=== PATIENT | female | born 1960 | race African-American/Black ===

== ENCOUNTER 2020-10-17 20:16 | Emergency (ER) | payer OTHER ==
[2020-10-17 20:35] VITALS: TEMP 98.1; BMI 25.8
[2020-10-17] MEDS ORDERED: ACETAMINOPHEN 1000 MG/100 ML VIAL (NON FORMULARY) IVPB ONE (20:36)
[2020-10-17] MEDS ORDERED: ASPIRIN 81 MG CHEWABLE TABLETS PO ONE (20:36)
[2020-10-17] MEDS ORDERED: LIDOCAINE 5% TOPICAL PATCH TP ONE (20:45)
[2020-10-17] MEDS ORDERED: ASPIRIN 81 MG CHEWABLE TABLETS ONE (20:54)
[2020-10-17] MEDS ORDERED: LIDOCAINE 5% TOPICAL PATCH ONE (20:55)
[2020-10-17] MEDS ORDERED: ACETAMINOPHEN INJECTION 100 ML IVPB ONE (20:55)
[2020-10-17] MEDS ORDERED: diazePAM 5 MG TABLET ONE (20:55)
[2020-10-17 21:07] LABS: BASO % 0.4 % (0-2.0); EOS % 0.7 % (0-4.5); HEMATOCRIT 36.5 % (32.4-45.2); MCH 27.4 pg (25.7-33.7); MCHC 32.9 g/dl (32.0-36.0); MEAN CELL VOLUME 83.3 fl (80-96); MEAN PLT VOLUME 8.6 fl (7.5-11.1); MONO % 6.8 % (3.8-10.2); NEUT % 52.1 % (42.8-82.8); PLATELET COUNT 132 K/MM3 (134-434); RBC 4.39 M/mm3 (3.60-5.2); RDW 16.5 % (11.6-15.6); WHITE BLOOD COUNT 5.5 K/mm3 (4.0-10.0)
[2020-10-17 21:27] LABS: CHLORIDE 110 mmol/L (98-107); SODIUM 138 mmol/L (136-145)
[2020-10-17 21:29] LABS: BLOOD UREA NITROGEN 14.5 mg/dL (7-18); CALCIUM 8.3 mg/dL (8.5-10.1); CO2 29 mmol/L (21-32); GLUCOSE,RANDOM 84 mg/dL (74-106)
[2020-10-17 21:30] LABS: ALBUMIN 3.3 g/dl (3.4-5.0); INR 1.02 (0.83-1.09); PROTHROMBIN TIME (PATIENT) 12.3 SEC (9.7-13.0)
[2020-10-17 21:32] LABS: ACTIVATED PTT 29.3 SECONDS (25.2-36.5); SGPT/ALT 27 U/L (13-61)
[2020-10-17 21:33] LABS: CREATININE 0.9 mg/dL (0.55-1.3); SGOT/AST 64 U/L (15-37)
[2020-10-17 21:34] LABS: BILIRUBIN,TOTAL 0.3 mg/dL (0.2-1); TOT PROT 6.8 g/dl (6.4-8.2)
[2020-10-17 21:35] LABS: ALK PHOS 86 U/L (45-117)
[2020-10-17 21:46] LABS: ANION GAP -1 MMOL/L (8-16)
[2020-10-17] MEDS ORDERED: KETOROLAC TROMETHAMINE 30 MG/1 ML VIAL IVPUSH ONE (21:49)
[2020-10-17] MEDS ORDERED: KETOROLAC TROMETHAMINE 30 MG/1 ML VIAL ONE (21:53)
[2020-10-17] MEDS ORDERED: ALBUTEROL SO4 2.5/IPRATROPIUM 0.5 INH SOL 3 ML VIAL.NEB. NEB ONE (21:57)
[2020-10-17] MEDS ORDERED: LIDOCAINE PATCH REMOVAL MC SCH (22:00)
[2020-10-17] MEDS ORDERED: diazePAM 5 MG TABLET PO ONE (22:00)
[2020-10-17 22:50] VITALS: BP 128/78; PULSE 64
== END 2020-10-17 22:49 | disposition home or self-care (01) ==
LOC: JER 20:16
PROC: 3E0333Z Introduction of Anti-inflammatory into Peripheral Vein, Percutaneous Approach (ICD-10-PCS; principal; 2020-10-17)
PROC: 3E0F7GC Introduction of Other Therapeutic Substance into Respiratory Tract, Via Natural or Artificial Opening (ICD-10-PCS; 2020-10-17)
PROC: 3E0333Z Introduction of Anti-inflammatory into Peripheral Vein, Percutaneous Approach (ICD-10-PCS; 2020-10-17)
DX: R07.89 Other chest pain (principal)
CPT/HCPCS: 36415; 71045-TC-FY; 80053; 82550; 82553; 83735; 84484; 85025; 85379; 85610; 85730; 93005; 93010; 99285-25; J0131

== ENCOUNTER 2021-08-15 09:19 | Inpatient (IN) | payer SELFPAY ==
[2021-08-15] MEDS ORDERED: morphine CARPU-JECT 4 MG/1 ML DISP.SYRIN IVPUSH ONE ×2 (09:43→13:10)
[2021-08-15] MEDS ORDERED: ACETAMINOPHEN 1000 MG/100 ML BAG IVPB ONE (09:43)
[2021-08-15] MEDS ORDERED: SODIUM CHLORIDE 0.9% 500 ML INFUS.BAG IV ONE (09:43)
[2021-08-15] MEDS ORDERED: morphine SULFATE 4 MG/ML VIAL ONE ×2 (09:53→13:21)
[2021-08-15] MEDS ORDERED: ACETAMINOPHEN INJECTION 100 ML IVPB ONE (09:53)
[2021-08-15 10:20] LABS: BASO % 0.2 % (0-2.0); EOS % 0.2 % (0-4.5); HEMATOCRIT 39.1 % (32.4-45.2); HEMOGLOBIN 12.9 GM/dL (10.7-15.3); LYMPH % 26.6 % (8-40); MCH 26.6 pg (25.7-33.7); MEAN CELL VOLUME 80.5 fl (80-96); MEAN PLT VOLUME 7.9 fl (7.5-11.1); MONO % 10.2 % (3.8-10.2); NEUT % 62.8 % (42.8-82.8); PLATELET COUNT 141 10^3/uL (134-434); RBC 4.85 M/mm3 (3.60-5.2); RDW 16.3 % (11.6-15.6); WHITE BLOOD COUNT 5.7 K/mm3 (4.0-10.0)
[2021-08-15 10:28] LABS: INR 1.08 (0.83-1.09); PROTHROMBIN TIME (PATIENT) 12.4 SEC (9.7-13.0)
[2021-08-15 10:31] LABS: ACTIVATED PTT 31.1 SECONDS (25.2-36.5)
[2021-08-15 10:40] LABS: BLOOD UREA NITROGEN 9.6 mg/dL (7-18)
[2021-08-15 10:41] LABS: ALBUMIN 3.8 g/dl (3.4-5.0); MAGNESIUM 2.3 mg/dL (1.8-2.4)
[2021-08-15 10:44] LABS: CREATININE 0.8 mg/dL (0.55-1.3)
[2021-08-15 10:45] LABS: TOT PROT 7.6 g/dl (6.4-8.2)
[2021-08-15 11:56] LABS: URINE APPEARANCE CLEAR; URINE BILIRUBIN NEGATIVE (NEGATIVE); URINE COLOR YELLOW; URINE GLUCOSE (UA) NEGATIVE (NEGATIVE); URINE KETONE NEGATIVE (NEGATIVE); URINE LEUK ESTERASE NEGATIVE (NEGATIVE); URINE NITRITE NEGATIVE (NEGATIVE); URINE PROTEIN NEGATIVE (NEGATIVE)
[2021-08-15] MEDS ORDERED: metroNIDAZOLE 250 MG TABLET PO ONE (14:07)
[2021-08-15] MEDS ORDERED: metroNIDAZOLE 250 MG TABLET ONE (14:22)
[2021-08-15] MEDS ORDERED: ACETAMINOPHEN 325 MG TABLET (FP) PO PRN (14:30)
[2021-08-15] MEDS ORDERED: oxyCODONE HCL 5 MG TABLET PO PRN (14:30)
[2021-08-15] MEDS ORDERED: BUDESONIDE/FORMETEROL FUMARATE 160/4.5 mcg INHALER IH ONE (15:03)
[2021-08-15] MEDS ORDERED: ALBUTEROL SO4 HFA INHALER IH PRN (15:04)
[2021-08-15] MEDS ORDERED: oxyCODONE HCL 5 MG TABLET ONE ×2 (16:34→20:43)
[2021-08-15] MEDS ORDERED: LIDOCAINE 5% TOPICAL PATCH TP ONE (16:45)
[2021-08-15] MEDS ORDERED: LIDOCAINE 5% TOPICAL PATCH ONE (17:12)
[2021-08-15] MEDS ORDERED: INSULIN SLIDING SCALE (NOVOLOG) 1 VIAL SQ ONE (17:48)
[2021-08-15] MEDS: INSULIN SLIDING SCALE (NOVOLOG) 1 VIAL SQ SCH (17:49)
[2021-08-15] MEDS: oxyCODONE HCL 5 MG TABLET PO PRN (20:53)
[2021-08-15] MEDS: ACETAMINOPHEN 325 MG TABLET (FP) PO PRN (20:53)
[2021-08-15 21:21] VITALS: BMI 25.2
[2021-08-15] MEDS: HEPARIN NA (PORCINE) 5,000 UNITS/ML 1ML VIAL SQ SCH (21:34)
[2021-08-15] MEDS: LIDOCAINE PATCH REMOVAL MC SCH (21:34)
[2021-08-16] MEDS: ACETAMINOPHEN 325 MG TABLET (FP) PO PRN ×4 (00:48→12:28)
[2021-08-16] MEDS: oxyCODONE HCL 5 MG TABLET PO PRN ×4 (00:48→12:28)
[2021-08-16] MEDS: INSULIN SLIDING SCALE (NOVOLOG) 1 VIAL SQ SCH ×3 (06:04→16:57)
[2021-08-16 08:35] LABS: BASO % 0.3 % (0-2.0); EOS % 0.6 % (0-4.5); HEMATOCRIT 35.5 % (32.4-45.2); HEMOGLOBIN 11.6 GM/dL (10.7-15.3); LYMPH % 45.5 % (8-40); MCH 26.6 pg (25.7-33.7); MCHC 32.7 g/dl (32.0-36.0); MEAN CELL VOLUME 81.3 fl (80-96); MEAN PLT VOLUME 8.4 fl (7.5-11.1); MONO % 10.2 % (3.8-10.2); NEUT % 43.4 % (42.8-82.8); PLATELET COUNT 115 10^3/uL (134-434); RBC 4.36 M/mm3 (3.60-5.2); RDW 16.5 % (11.6-15.6); WHITE BLOOD COUNT 4.2 K/mm3 (4.0-10.0)
[2021-08-16 08:55] LABS: CALCIUM 8.2 mg/dL (8.5-10.1)
[2021-08-16 08:56] LABS: BLOOD UREA NITROGEN 8.2 mg/dL (7-18)
[2021-08-16 08:59] LABS: CREATININE 0.8 mg/dL (0.55-1.3)
[2021-08-16 09:00] LABS: BILIRUBIN,TOTAL 0.7 mg/dL (0.2-1); TOT PROT 6.2 g/dl (6.4-8.2)
[2021-08-16] MEDS: HEPARIN NA (PORCINE) 5,000 UNITS/ML 1ML VIAL SQ SCH ×2 (09:42→21:07)
[2021-08-16] MEDS: TIOTROPIUM BROMIDE 2.5 MCG (SPIRIVA) RESPIMAT INHALER IH SCH (10:48)
[2021-08-16] MEDS: ACETAMINOPHEN 1000 MG/100 ML BAG IVPB SCH ×3 (16:56→21:07)
[2021-08-16] MEDS: POLYETHYLENE GLYCOL (HEALTHYLAX) 3350 17 GM PACKET PO SCH ×2 (16:56→21:07)
[2021-08-16] MEDS: LIDOCAINE PATCH REMOVAL MC SCH (21:07)
[2021-08-17] MEDS: ACETAMINOPHEN 1000 MG/100 ML BAG IVPB SCH ×2 (00:45→01:24)
[2021-08-17] MEDS ORDERED: MELATONIN 5 MG TABLETS PO ONE (02:42)
[2021-08-17] MEDS: POLYETHYLENE GLYCOL (HEALTHYLAX) 3350 17 GM PACKET PO SCH ×3 (05:09→21:07)
[2021-08-17] MEDS: INSULIN SLIDING SCALE (NOVOLOG) 1 VIAL SQ SCH ×3 (06:10→16:53)
[2021-08-17] MEDS ORDERED: ACETAMINOPHEN 1000 MG/100 ML BAG IVPB ONE (08:01)
[2021-08-17 09:22] LABS: BASO % 0.4 % (0-2.0); EOS % 0.2 % (0-4.5); HEMATOCRIT 36.2 % (32.4-45.2); LYMPH % 37.5 % (8-40); MCH 26.9 pg (25.7-33.7); MCHC 33.2 g/dl (32.0-36.0); MEAN CELL VOLUME 81.1 fl (80-96); MEAN PLT VOLUME 8.4 fl (7.5-11.1); MONO % 9.6 % (3.8-10.2); NEUT % 52.3 % (42.8-82.8); PLATELET COUNT 132 10^3/uL (134-434); RBC 4.46 M/mm3 (3.60-5.2); RDW 16.1 % (11.6-15.6); WHITE BLOOD COUNT 4.7 K/mm3 (4.0-10.0)
[2021-08-17 10:06] LABS: CALCIUM 8.6 mg/dL (8.5-10.1)
[2021-08-17 10:07] LABS: BLOOD UREA NITROGEN 7.6 mg/dL (7-18); MAGNESIUM 2.2 mg/dL (1.8-2.4)
[2021-08-17 10:10] LABS: CREATININE 0.7 mg/dL (0.55-1.3); PHOSPHOROUS 3.3 mg/dL (2.5-4.9)
[2021-08-17 10:11] LABS: BILIRUBIN,TOTAL 0.6 mg/dL (0.2-1)
[2021-08-17 10:12] LABS: TOT PROT 6.4 g/dl (6.4-8.2)
[2021-08-17] MEDS ORDERED: SIMETHICONE 80 MG TAB.CHEW (FP) PO PRN (10:45)
[2021-08-17] MEDS: Methylnaltrexone Bromide 12 MG/0.6 ML KIT SQ SCH (11:51)
[2021-08-17] MEDS: TIOTROPIUM BROMIDE 2.5 MCG (SPIRIVA) RESPIMAT INHALER IH SCH (11:52)
[2021-08-17] MEDS: HEPARIN NA (PORCINE) 5,000 UNITS/ML 1ML VIAL SQ SCH ×2 (11:55→21:07)
[2021-08-17] MEDS: ACETAMINOPHEN 1000 MG/100 ML BAG IVPB PRN (16:54)
[2021-08-17] MEDS: ACETAMINOPHEN 325 MG TABLET (FP) PO PRN (21:06)
[2021-08-17] MEDS: MELATONIN 5 MG TABLETS PO PRN (21:07)
[2021-08-18] MEDS: ACETAMINOPHEN 325 MG TABLET (FP) PO PRN (03:07)
[2021-08-18] MEDS: POLYETHYLENE GLYCOL (HEALTHYLAX) 3350 17 GM PACKET PO SCH ×3 (06:04→21:30)
[2021-08-18] MEDS: INSULIN SLIDING SCALE (NOVOLOG) 1 VIAL SQ SCH ×3 (06:06→18:19)
[2021-08-18 09:05] LABS: HEMATOCRIT 38.3 % (32.4-45.2); HEMOGLOBIN 12.6 GM/dL (10.7-15.3); MCH 26.5 pg (25.7-33.7); MCHC 32.9 g/dl (32.0-36.0); MEAN CELL VOLUME 80.6 fl (80-96); MEAN PLT VOLUME 8.7 fl (7.5-11.1); PLATELET COUNT 153 10^3/uL (134-434); RBC 4.75 M/mm3 (3.60-5.2); RDW 16.6 % (11.6-15.6); WHITE BLOOD COUNT 4.2 K/mm3 (4.0-10.0)
[2021-08-18 09:24] LABS: ALBUMIN 3.2 g/dl (3.4-5.0); CALCIUM 9.3 mg/dL (8.5-10.1); MAGNESIUM 2.1 mg/dL (1.8-2.4)
[2021-08-18 09:25] LABS: PHOSPHOROUS 3.9 mg/dL (2.5-4.9)
[2021-08-18 09:26] LABS: BILIRUBIN,TOTAL 0.4 mg/dL (0.2-1); TOT PROT 6.8 g/dl (6.4-8.2)
[2021-08-18 09:27] LABS: CREATININE 0.8 mg/dL (0.55-1.3)
[2021-08-18] MEDS: HEPARIN NA (PORCINE) 5,000 UNITS/ML 1ML VIAL SQ SCH ×2 (10:15→21:30)
[2021-08-18] MEDS: Methylnaltrexone Bromide 12 MG/0.6 ML KIT SQ SCH (10:22)
[2021-08-18] MEDS: ACETAMINOPHEN 1000 MG/100 ML BAG IVPB PRN (10:23)
[2021-08-18] MEDS: TIOTROPIUM BROMIDE 2.5 MCG (SPIRIVA) RESPIMAT INHALER IH SCH ×2 (11:07→11:10)
[2021-08-18] MEDS ORDERED: ACETAMINOPHEN 325 MG TABLET (FP) PO SCH (15:00)
[2021-08-18] MEDS: ACETAMINOPHEN 500 MG TABLET (FP) PO SCH ×2 (16:14→23:31)
[2021-08-18] MEDS: metroNIDAZOLE 250 MG TABLET PO SCH (18:23)
[2021-08-18] MEDS: GABAPENTIN 300 MG CAPSULE PO SCH (21:30)
[2021-08-19] MEDS: MELATONIN 5 MG TABLETS PO PRN (02:30)
[2021-08-19] MEDS: metroNIDAZOLE 250 MG TABLET PO SCH ×2 (03:52→10:30)
[2021-08-19] MEDS: POLYETHYLENE GLYCOL (HEALTHYLAX) 3350 17 GM PACKET PO SCH ×2 (05:31→13:51)
[2021-08-19] MEDS: GABAPENTIN 300 MG CAPSULE PO SCH ×2 (05:31→13:51)
[2021-08-19] MEDS: INSULIN SLIDING SCALE (NOVOLOG) 1 VIAL SQ SCH ×2 (06:06→12:10)
[2021-08-19 09:02] LABS: HEMATOCRIT 36.1 % (32.4-45.2); MCH 27.1 pg (25.7-33.7); MCHC 33.2 g/dl (32.0-36.0); MEAN CELL VOLUME 81.6 fl (80-96); PLATELET COUNT 149 10^3/uL (134-434); RBC 4.42 M/mm3 (3.60-5.2); RDW 16.2 % (11.6-15.6); WHITE BLOOD COUNT 3.2 K/mm3 (4.0-10.0)
[2021-08-19 09:24] LABS: CALCIUM 9.6 mg/dL (8.5-10.1)
[2021-08-19 09:25] LABS: ALBUMIN 3.1 g/dl (3.4-5.0); BLOOD UREA NITROGEN 10.6 mg/dL (7-18); MAGNESIUM 2.1 mg/dL (1.8-2.4)
[2021-08-19 09:28] LABS: CREATININE 0.8 mg/dL (0.55-1.3); PHOSPHOROUS 4.4 mg/dL (2.5-4.9)
[2021-08-19 09:29] LABS: BILIRUBIN,TOTAL 0.6 mg/dL (0.2-1); TOT PROT 6.8 g/dl (6.4-8.2)
[2021-08-19] MEDS: ACETAMINOPHEN 500 MG TABLET (FP) PO SCH (10:30)
[2021-08-19] MEDS: TIOTROPIUM BROMIDE 2.5 MCG (SPIRIVA) RESPIMAT INHALER IH SCH (10:31)
[2021-08-19] MEDS: HEPARIN NA (PORCINE) 5,000 UNITS/ML 1ML VIAL SQ SCH (10:31)
[2021-08-19] MEDS: Methylnaltrexone Bromide 12 MG/0.6 ML KIT SQ SCH (10:31)
[2021-08-19 15:07] VITALS: BP 131/76; PULSE 66; TEMP 97.4
== END 2021-08-19 15:45 | disposition home or self-care (01) | DRG 249 ==
LOC: JER 09:19 → JERBED 17:38 → J8W 20:46
PROVIDERS: ATTEND Internal Medicine
DX: K52.9 Noninfective gastroenteritis and colitis, unspecified (principal); I95.9 Hypotension, unspecified; K57.92 Diverticulitis of intestine, part unspecified, without perforation or abscess without bleeding; F10.10 Alcohol abuse, uncomplicated; J44.9 Chronic obstructive pulmonary disease, unspecified; M48.00 Spinal stenosis, site unspecified; K59.00 Constipation, unspecified; G89.29 Other chronic pain; R10.12 Left upper quadrant pain; I10 Essential (primary) hypertension; E11.9 Type 2 diabetes mellitus without complications; B19.20 Unspecified viral hepatitis C without hepatic coma; Z79.84 Long term (current) use of oral hypoglycemic drugs; N28.1 Cyst of kidney, acquired; M54.16 Radiculopathy, lumbar region; M19.90 Unspecified osteoarthritis, unspecified site; D86.9 Sarcoidosis, unspecified; M54.50 Low back pain, unspecified; E78.5 Hyperlipidemia, unspecified; M54.30 Sciatica, unspecified side
CPT/HCPCS: 36415; 71045-TC-FY; 72131-TC; 74177-TC; 76775-TC; 80053; 81003; 82105; 82150; 82550; 82962; 83036; 83605; 83690; 83735; 84100; 84484; 85025; 85027; 85610; 85730; 86140; 87045; 87046; 87086; 87177; 87205; 87209; 93005; 93010; 97116-GP; 97161-GP; 99285-25; C9803; J1644; Q9967; U0003; U0005